=== PATIENT | female | born 1975 | race Caucasian/White ===

== ENCOUNTER 2021-10-18 14:04 | Emergency (ER) | payer OTHER ==
[2021-10-18 14:26] VITALS: BP 158/89; PULSE 98; TEMP 98; BMI 33.2
[2021-10-18 17:19] LABS: HCG,QUALITATIVE URINE Negative
[2021-10-18 17:20] LABS: EPI CELLS >36 /uL (0-25.1); HYALINE CASTS 1 /uL (0-3.1); URINE APPEARANCE CLOUDY; URINE BACTERIA 2370 /uL (0-1359); URINE BILIRUBIN NEGATIVE (NEGATIVE); URINE COLOR YELLOW; URINE GLUCOSE (UA) NEGATIVE (NEGATIVE); URINE KETONE TRACE (NEGATIVE); URINE LEUK ESTERASE 2+ (NEGATIVE); URINE NITRITE NEGATIVE (NEGATIVE); URINE PROTEIN 1+ (NEGATIVE); URINE UROBILINOGEN 0.2 mg/dL (0.2-1.0); URINE WBC 1602 /uL (0-25.8)
[2021-10-19 20:07] LABS: SARS-CoV-2 NAA Not Detected (Not Detected)
== END 2021-10-18 17:38 | disposition home or self-care (01) ==
LOC: JER 14:04 → JERFT 14:04
DX: R05.1 Acute cough (principal); N39.0 Urinary tract infection, site not specified
CPT/HCPCS: 71046-TC-FY; 81003; 84703; 87804; 87807; 99283-25; C9803-CS; U0003; U0005

== ENCOUNTER 2024-01-24 14:53 | Emergency (ER) | payer OTHER ==
[2024-01-24 15:05] VITALS: RESP 18; BMI 30.1
[2024-01-24 15:55] LABS: EPI CELLS >36 /uL (0-25.1); HYALINE CASTS 8 /uL (0-3.1); URINE APPEARANCE TURBID; URINE BACTERIA 4849 /uL (0-1359); URINE BILIRUBIN 1+ (NEGATIVE); URINE COLOR DK YELLOW; URINE GLUCOSE (UA) NEGATIVE (NEGATIVE); URINE KETONE TRACE (NEGATIVE); URINE LEUK ESTERASE 2+ (NEGATIVE); URINE NITRITE NEGATIVE (NEGATIVE); URINE PROTEIN 1+ (NEGATIVE); URINE RBC 31 /uL (0-23.9); URINE WBC 1858 /uL (0-25.8)
[2024-01-24] MEDS ORDERED: ACETAMINOPHEN INJECTION 100 ML IVPB ONE (16:23)
[2024-01-24] MEDS ORDERED: LIDOCAINE 4% PATCH TP ONE (16:23)
[2024-01-24 16:24] LABS: BASO % 0.9 % (0-2.0); EOS % 1.2 % (0-4.5); HEMATOCRIT 34.8 % (32.4-45.2); HEMOGLOBIN 10.3 GM/dL (10.7-15.3); LYMPH % 18.6 % (8-40); MCHC 29.6 g/dl (32.0-36.0); MEAN CELL VOLUME 67.6 fl (80-96); MEAN PLT VOLUME 8.7 fl (7.5-11.1); MONO % 6.7 % (3.8-10.2); NEUT % 72.6 % (42.8-82.8); PLATELET COUNT 271 10^3/uL (134-434); RBC 5.15 M/mm3 (3.60-5.2); RDW 21.6 % (11.6-15.6); WHITE BLOOD COUNT 8.7 K/mm3 (4.0-10.0)
[2024-01-24] MEDS ORDERED: ONDANSETRON 4 MG/2 ML VIAL ONE (16:24)
[2024-01-24] MEDS: ACETAMINOPHEN 1000 MG/100 ML BAG IVPB ONE (16:31)
[2024-01-24] MEDS: ONDANSETRON 4 MG/2 ML VIAL IVPB ONE (16:31)
[2024-01-24] MEDS: LIDOCAINE 4% PATCH TP ONE (16:31)
[2024-01-24] MEDS: SODIUM CHLORIDE 0.9% 500 ML INFUS.BAG IV ONE (16:31)
[2024-01-24 16:43] LABS: ANISOCYTOSIS 3+; MACROCYTOSIS 0
[2024-01-24 16:50] LABS: POTASSIUM 4.1 mmol/L (3.5-5.1)
[2024-01-24 16:52] LABS: CALCIUM 8.9 mg/dL (8.5-10.1)
[2024-01-24 16:53] LABS: ALBUMIN 3.8 g/dl (3.4-5.0); BLOOD UREA NITROGEN 11.2 mg/dL (7-18)
[2024-01-24 16:55] LABS: CREATININE 0.8 mg/dL (0.55-1.3)
[2024-01-24 16:57] LABS: BILIRUBIN,TOTAL 0.3 mg/dL (0.2-1); TOT PROT 8.4 g/dl (6.4-8.2)
[2024-01-24 18:58] VITALS: BP 140/77; PULSE 77; TEMP 97.9
[2024-01-24] MEDS ORDERED: cefTRIAXone SODIUM 1 GM VIAL ONE (19:06)
[2024-01-24] MEDS ORDERED: LIDOCAINE PATCH REMOVAL MC ONE (22:00)
== END 2024-01-24 19:32 | disposition home or self-care (01) ==
LOC: JER 14:53
PROC: 3E033NZ Introduction of Analgesics, Hypnotics, Sedatives into Peripheral Vein, Percutaneous Approach (ICD-10-PCS; principal; 2024-01-24)
PROC: 3E033GC Introduction of Other Therapeutic Substance into Peripheral Vein, Percutaneous Approach (ICD-10-PCS; 2024-01-24)
PROC: 3E02329 Introduction of Other Anti-infective into Muscle, Percutaneous Approach (ICD-10-PCS; 2024-01-24)
DX: N39.0 Urinary tract infection, site not specified (principal); A64 Unspecified sexually transmitted disease; N88.8 Other specified noninflammatory disorders of cervix uteri
CPT/HCPCS: 36415; 76830-TC; 80053; 81003; 83690; 84703; 85025; 87086; 87491; 87591; 87661; 99284-25; J0131